=== PATIENT | male | born 1955 | race Two or more races ===

== ENCOUNTER 2022-04-01 11:06 | Inpatient (IN) | payer MEDICARE, MEDICAID ==
[~2022-04-01] VITALS: Ht 180.3 cm; Wt 100.6 kg
[2022-04-01] MEDS ORDERED: PANTOPRAZOLE 40 MG/10 ML VIAL INJ IV ONE (11:15)
[2022-04-01] MEDS ORDERED: PROCHLORPERAZINE EDISYLATE 5 MG/ML 2ML VIAL IV ONE (11:15)
[2022-04-01] MEDS ORDERED: SODIUM CHLORIDE 0.9% 1,000 ML IVB ONE (11:15)
[2022-04-01] MEDS ORDERED: MORPHINE SULFATE 4 MG/ML SYR/VIAL IV ONE (11:15)
[2022-04-01 12:07] LABS: Basophils # (auto) 0 10 ^3/uL (0-0.2); Basophils % (auto) 0.3 % (0.0-2.0); Eosinophils # (auto) 0 10 ^3/uL (0-0.8); Eosinophils % (auto) 0.1 % (0.0-7.0); Hematocrit 52.8 % (41.0-53.0); Hemoglobin 18.3 g/dL (13.5-17.5); Lymphocytes # (auto) 0.4 10 ^3/uL (0.4-5.4); Lymphocytes % (auto) 3.8 % (10.0-50.0); Mean Corpuscular Hemoglobin 30.2 pg (28.0-32.0); Mean Corpuscular Hgb Conc. 34.6 g/dL (32.0-36.0); Mean Corpuscular Volume 87.4 fL (80.0-100.0); Monocytes # (auto) 0.7 10 ^3/uL (0-1.3); Monocytes % (auto) 6.9 % (0.0-12.0); Neutrophils # (auto) 9.6 10 ^3/uL (1.6-8.6); Neutrophils % (auto) 88.9 % (37.0-80.0); Nucleated Red Blood Cells % 0.4 %; Red Blood Cells 6.05 10^6/uL (4.5-5.90); Red Cell Distribution Width 13.3 % (11.8-14.3); White Blood Cell 10.8 10^3/uL (4.4-10.8)
[2022-04-01 12:31] LABS: Albumin 3.8 g/dL (3.4-5.0); Calcium 9.4 mg/dL (8.5-10.1); Potassium 4.1 mmol/L (3.5-5.1)
[2022-04-01 12:34] LABS: Bilirubin, Total 0.5 mg/dL (0.2-1.0); Total Protein 6.7 g/dL (6.4-8.2)
[2022-04-01 13:49] LABS: Urine Bacteria FEW /hpf (None Seen); Urine Blood TRACE /uL (Negative); Urine Mucus FEW (None Seen); Urine Specific Gravity 1.019 (1.001-1.035); Urine WBC 1 /hpf (0 - 3)
[2022-04-01] MEDS ORDERED: HYDROcodone-ACET 5/325MG TAB PO ONE (14:00)
[2022-04-01] MEDS ORDERED: LORazepam 2MG/ML-1ML VIAL IV ONE (14:30)
[2022-04-01] MEDS: SODIUM CHLORIDE 0.9% 1,000 ML IV SCH (16:45)
[2022-04-01] MEDS ORDERED: hydrALAZINE HCL 20 MG/ML VL IV PRN (16:45)
[2022-04-01] MEDS ORDERED: ONDANSETRON HCL 4 MG/2 ML VIAL IV ONE (17:30)
[2022-04-01] MEDS: MORPHINE SULFATE INJ 2 MG/ml SYRG IV PRN ×2 (17:37→22:01)
[2022-04-01] MEDS ORDERED: LORazepam 2MG/ML-1ML VIAL IV PRN (23:15)
[2022-04-02] VITALS (8 sets, daily range): BP systolic 138–170; BP diastolic 77–106
[2022-04-02] MEDS: SODIUM CHLORIDE 0.9% 1,000 ML IV SCH ×3 (00:27→11:55)
[2022-04-02] MEDS: MORPHINE SULFATE INJ 2 MG/ml SYRG IV PRN ×5 (02:03→22:45)
[2022-04-02 06:02] LABS: Basophils # (auto) 0 10 ^3/uL (0-0.2); Basophils % (auto) 0.3 % (0.0-2.0); Eosinophils # (auto) 0 10 ^3/uL (0-0.8); Eosinophils % (auto) 0.9 % (0.0-7.0); Hematocrit 47.2 % (41.0-53.0); Hemoglobin 15.8 g/dL (13.5-17.5); Lymphocytes # (auto) 0.7 10 ^3/uL (0.4-5.4); Mean Corpuscular Hemoglobin 29.3 pg (28.0-32.0); Mean Corpuscular Hgb Conc. 33.5 g/dL (32.0-36.0); Mean Corpuscular Volume 87.6 fL (80.0-100.0); Monocytes # (auto) 0.4 10 ^3/uL (0-1.3); Monocytes % (auto) 12.2 % (0.0-12.0); Neutrophils % (auto) 63.6 % (37.0-80.0); Nucleated Red Blood Cells % 0.1 %; Red Blood Cells 5.38 10^6/uL (4.5-5.90); Red Cell Distribution Width 13.4 % (11.8-14.3); White Blood Cell 3.1 10^3/uL (4.4-10.8)
[2022-04-02 06:04] LABS: Albumin 3.3 g/dL (3.4-5.0); Calcium 7.9 mg/dL (8.5-10.1); Potassium 4.2 mmol/L (3.5-5.1)
[2022-04-02 06:07] LABS: BUN/Creatinine Ratio 10.5; Bilirubin, Total 0.8 mg/dL (0.2-1.0); Total Protein 5.9 g/dL (6.4-8.2)
[2022-04-02] MEDS ORDERED: GASTROGRAFIN 120 ML SOL ONE (09:01)
[2022-04-02] MEDS ORDERED: ENOXAPARIN SOD 40 MG/0.4 ML SYRINGE SC SCH (10:00)
[2022-04-02] MEDS ORDERED: LINA145C PO (11:11)
[2022-04-02] MEDS ORDERED: FUR20T PO (11:11)
[2022-04-02] MEDS ORDERED: MET25T PO (11:11)
[2022-04-02] MEDS ORDERED: CHOLCAP4 PO (11:11)
[2022-04-02] MEDS ORDERED: ONDA-144 (11:11)
[2022-04-02] MEDS ORDERED: HYDR-4611 PO (11:11)
[2022-04-02] MEDS ORDERED: TRAZ50TA2 PO (11:11)
[2022-04-02] MEDS ORDERED: KETO2SHA5 TOP (11:11)
[2022-04-02] MEDS ORDERED: PRAV20TA3 PO (11:11)
[2022-04-02] MEDS ORDERED: NIFE1TAB30 (11:11)
[2022-04-02] MEDS ORDERED: HYDR25TA87 PO (11:11)
[2022-04-02] MEDS ORDERED: CYCL-611 PO (11:11)
[2022-04-02] MEDS ORDERED: TRAM50TA2 PO (11:11)
[2022-04-02] MEDS ORDERED: ALBU108A5 INH (11:11)
[2022-04-02] MEDS ORDERED: CLON0.2T PO (11:11)
[2022-04-02] MEDS ORDERED: HYDROcodone-ACET 5/325MG TAB PO PRN (11:15)
[2022-04-02] MEDS ORDERED: METOPROLOL TARTRATE 25 MG TAB PO ONE (11:15)
[2022-04-02] MEDS ORDERED: PANTOPRAZOLE 40 MG/10 ML VIAL INJ IV ONE (11:15)
[2022-04-02] MEDS ORDERED: levoFLOXacin 500MG 100 ML IV ONE (11:15)
[2022-04-02] MEDS: ONDANSETRON HCL 4 MG/2 ML VIAL IV PRN ×2 (12:50→22:44)
[2022-04-02] MEDS: metroNIDAZOLE 500MG/100ML 100 ML IV SCH ×2 (13:38→21:40)
[2022-04-02] MEDS ORDERED: LORazepam 0.5 MG TAB PO PRN (16:45)
[2022-04-02] MEDS: METOPROLOL TARTRATE 25 MG TAB PO SCH (21:40)
[2022-04-03 05:00] VITALS: BP 166/107
[2022-04-03] MEDS: metroNIDAZOLE 500MG/100ML 100 ML IV SCH ×2 (05:04→14:36)
[2022-04-03] MEDS: MORPHINE SULFATE INJ 2 MG/ml SYRG IV PRN ×2 (05:04→09:42)
[2022-04-03] MEDS: ONDANSETRON HCL 4 MG/2 ML VIAL IV PRN ×2 (05:05→09:42)
[2022-04-03] MEDS: SODIUM CHLORIDE 0.9% 1,000 ML IV SCH (05:11)
[2022-04-03 05:50] LABS: Basophils # (auto) 0 10 ^3/uL (0-0.2); Basophils % (auto) 0.2 % (0.0-2.0); Eosinophils # (auto) 0 10 ^3/uL (0-0.8); Eosinophils % (auto) 0.4 % (0.0-7.0); Hematocrit 48.8 % (41.0-53.0); Hemoglobin 16.4 g/dL (13.5-17.5); Lymphocytes # (auto) 1.1 10 ^3/uL (0.4-5.4); Lymphocytes % (auto) 21.4 % (10.0-50.0); Mean Corpuscular Hemoglobin 29.3 pg (28.0-32.0); Mean Corpuscular Hgb Conc. 33.5 g/dL (32.0-36.0); Mean Corpuscular Volume 87.2 fL (80.0-100.0); Monocytes # (auto) 0.5 10 ^3/uL (0-1.3); Monocytes % (auto) 10.5 % (0.0-12.0); Neutrophils # (auto) 3.5 10 ^3/uL (1.6-8.6); Neutrophils % (auto) 67.5 % (37.0-80.0); Nucleated Red Blood Cells % 0.1 %; Red Cell Distribution Width 13.1 % (11.8-14.3); White Blood Cell 5.1 10^3/uL (4.4-10.8)
[2022-04-03 05:55] LABS: Albumin 3.6 g/dL (3.4-5.0); Calcium 8.5 mg/dL (8.5-10.1); Potassium 3.7 mmol/L (3.5-5.1)
[2022-04-03 06:00] LABS: BUN/Creatinine Ratio 6.3; Bilirubin, Total 0.7 mg/dL (0.2-1.0); Total Protein 6.8 g/dL (6.4-8.2)
[2022-04-03 08:20] VITALS: BP 150/108
[2022-04-03 08:25] VITALS: BP 150/108
[2022-04-03] MEDS: METOPROLOL TARTRATE 25 MG TAB PO SCH (09:41)
[2022-04-03] MEDS ORDERED: PANTOPRAZOLE 40 MG/10 ML VIAL INJ IV SCH (10:00)
[2022-04-03] MEDS ORDERED: levoFLOXacin 500MG 100 ML IV SCH (10:00)
[2022-04-03] MEDS ORDERED: LISINOPRIL 10 MG TAB PO ONE (11:15)
[2022-04-03] MEDS ORDERED: hydrALAZINE HCL 25 MG TAB PO ONE (11:30)
[2022-04-03] MEDS ORDERED: cloNIDine HCL 0.1 MG TAB PO ONE (11:30)
[2022-04-03 12:20] VITALS: BP 137/110
[2022-04-03 13:59] VITALS: BP 162/101
[2022-04-03] MEDS ORDERED: hydrALAZINE HCL 25 MG TAB PO SCH (22:00)
[2022-04-03] MEDS ORDERED: traZODone HCL 50 MG TAB PO SCH (22:00)
[2022-04-03] MEDS ORDERED: cloNIDine HCL 0.1 MG TAB PO SCH (22:00)
[2022-04-04] MEDS ORDERED: LISINOPRIL 10 MG TAB PO SCH (10:00)
== END 2022-04-03 14:58 | disposition home or self-care (01) | DRG 390 ==
LOC: EDBD 11:06 → ER 11:06 → OVERFLOW 16:37 → EAST 22:25
PROVIDERS: ADMIT Internal Medicine; ATTEND Internal Medicine
DX: K56.600 Partial intestinal obstruction, unspecified as to cause (principal); I10 Essential (primary) hypertension; E86.0 Dehydration; E66.9 Obesity, unspecified; F41.9 Anxiety disorder, unspecified; G89.29 Other chronic pain; E78.5 Hyperlipidemia, unspecified; Z20.822 Contact with and (suspected) exposure to COVID-19; K58.9 Irritable bowel syndrome, unspecified; R16.1 Splenomegaly, not elsewhere classified; K76.0 Fatty (change of) liver, not elsewhere classified; Z80.3 Family history of malignant neoplasm of breast; Z87.442 Personal history of urinary calculi; Z90.49 Acquired absence of other specified parts of digestive tract; Z68.30 Body mass index [BMI] 30.0-30.9, adult
CPT/HCPCS: 36415; 74176; 74250; 80053; 81001; 82150; 83690; 85025; 93005; 96361; 96374; 96375; 96376; C9113; G0378; J1956; J2405; J3490

== ENCOUNTER 2022-04-27 00:36 | Emergency (ER) | payer MEDICARE, MEDICAID ==
[~2022-04-27] VITALS: Ht 175.3 cm; Wt 100.0 kg
[~2022-04-27 00:36] MED LIST: ALBU108A5 INH; CHOLCAP4 PO; CLON0.2T PO; CYCL-611 PO; FUR20T PO; HYDR-4611 PO; HYDR25TA87 PO; KETO2SHA5 TOP; LINA145C PO; MET25T PO; NIFE1TAB30; ONDA-144; PRAV20TA3 PO; TRAM50TA2 PO; TRAZ50TA2 PO
[2022-04-27 01:21] LABS: Basophils # (auto) 0 10 ^3/uL (0-0.2)
[2022-04-27 01:23] LABS: Basophils % (auto) 0.6 % (0.0-2.0); Eosinophils # (auto) 0.1 10 ^3/uL (0-0.8); Eosinophils % (auto) 1.8 % (0.0-7.0); Hematocrit 51.4 % (41.0-53.0); Hemoglobin 17.6 g/dL (13.5-17.5); Lymphocytes # (auto) 1.8 10 ^3/uL (0.4-5.4); Lymphocytes % (auto) 41.4 % (10.0-50.0); Mean Corpuscular Hemoglobin 30.2 pg (28.0-32.0); Mean Corpuscular Hgb Conc. 34.3 g/dL (32.0-36.0); Monocytes # (auto) 0.4 10 ^3/uL (0-1.3); Neutrophils # (auto) 2.1 10 ^3/uL (1.6-8.6); Neutrophils % (auto) 48.2 % (37.0-80.0); Nucleated Red Blood Cells % 0.4 %; Red Blood Cells 5.84 10^6/uL (4.5-5.90); Red Cell Distribution Width 13.2 % (11.8-14.3); White Blood Cell 4.4 10^3/uL (4.4-10.8)
[2022-04-27 03:45] LABS: Urine Bacteria NONE SEEN /hpf (None Seen); Urine Blood Negative /uL (Negative); Urine Mucus FEW (None Seen); Urine Specific Gravity 1.016 (1.001-1.035); Urine WBC 1 /hpf (0 - 3)
[2022-04-27 03:53] LABS: Albumin 3.9 g/dL (3.4-5.0); Calcium 9.5 mg/dL (8.5-10.1); Potassium 3.7 mmol/L (3.5-5.1)
[2022-04-27 03:56] LABS: BUN/Creatinine Ratio 14.4; Bilirubin, Total 0.6 mg/dL (0.2-1.0); Total Protein 6.9 g/dL (6.4-8.2)
[2022-04-27] MEDS: ONDANSETRON HCL 4 MG/2 ML VIAL IV ONE (06:13)
[2022-04-27] MEDS: LORazepam 0.5 MG TAB PO ONE (08:21)
[2022-04-27] MEDS: MECLIZINE HCL 25 MG TAB PO ONE (08:21)
[2022-04-27] MEDS ORDERED: MECL1TAB42 PO (14:34)
[2022-04-27] MEDS ORDERED: FURO1TAB33 PO (14:34)
[2022-04-27] MEDS ORDERED: LORA-655 PO (14:34)
[2022-04-27] MEDS ORDERED: SPIR25TA PO (14:34)
[2022-04-27 15:27] VITALS: BP 134/87
== END 2022-04-27 15:38 | disposition home or self-care (01) ==
LOC: ER 00:36
DX: R42 Dizziness and giddiness (principal); F41.1 Generalized anxiety disorder; R09.89 Other specified symptoms and signs involving the circulatory and respiratory systems; J44.9 Chronic obstructive pulmonary disease, unspecified; E78.5 Hyperlipidemia, unspecified; I10 Essential (primary) hypertension; Z87.442 Personal history of urinary calculi
CPT/HCPCS: 36415; 71046; 80053; 81001; 83880; 84484; 85025; 93005; 96374; 99285; J2405; J8597

== ENCOUNTER 2023-02-04 11:52 | Inpatient (IN) | payer OTHER, MEDICAID ==
[~2023-02-04] VITALS: Ht 175.3 cm; Wt 95.0 kg
[~2023-02-04 11:52] MED LIST changes: +FURO1TAB33 PO; +LORA-655 PO; +MECL1TAB42 PO; +SPIR25TA PO; +TRAZ-227 PO; -TRAZ50TA2 PO
[2023-02-04 12:12] VITALS: BP 134/80
[2023-02-04 13:19] LABS: Basophils # (auto) 0 10 ^3/uL (0-0.2); Basophils % (auto) 0.4 % (0.0-2.0); Eosinophils # (auto) 0.1 10 ^3/uL (0-0.8); Eosinophils % (auto) 2.4 % (0.0-7.0); Hematocrit 46.3 % (41.0-53.0); Hemoglobin 15.7 g/dL (13.5-17.5); Lymphocytes # (auto) 1.4 10 ^3/uL (0.4-5.4); Lymphocytes % (auto) 33.4 % (10.0-50.0); Mean Corpuscular Hemoglobin 29.4 pg (28.0-32.0); Mean Corpuscular Hgb Conc. 33.9 g/dL (32.0-36.0); Mean Corpuscular Volume 86.9 fL (80.0-100.0); Monocytes # (auto) 0.4 10 ^3/uL (0-1.3); Monocytes % (auto) 8.9 % (0.0-12.0); Neutrophils # (auto) 2.2 10 ^3/uL (1.6-8.6); Neutrophils % (auto) 54.9 % (37.0-80.0); Nucleated Red Blood Cells % 0.5 %; Red Blood Cells 5.33 10^6/uL (4.5-5.90); Red Cell Distribution Width 13.6 % (11.8-14.3); White Blood Cell 4.1 10^3/uL (4.4-10.8)
[2023-02-04 13:22] LABS: Potassium 4.2 mmol/L (3.5-5.1)
[2023-02-04 13:24] LABS: INR 0.98 (0.9-1.15); Partial Thromboplastin Time 27.9 sec (24.6-33.4)
[2023-02-04 13:29] LABS: Albumin 3.6 g/dL (3.4-5.0); BUN/Creatinine Ratio 18.6 (10.0-20.0); Bilirubin, Total 0.4 mg/dL (0.2-1.0); Calcium 9.5 mg/dL (8.5-10.1); Magnesium 2.3 mg/dL (1.6-2.6); Total Protein 6.2 g/dL (6.4-8.2)
[2023-02-04] MEDS ORDERED: LINACLOTIDE BASE PO PRN (17:45)
[2023-02-04] MEDS ORDERED: ERGOCALCIFEROL 50,000 UNIT(1.25MG) CAP PO SCH (18:15)
[2023-02-04] MEDS ORDERED: SODIUM CHLORIDE 0.9% 1,000 ML IV ONE (18:15)
[2023-02-04 18:29] LABS: Magnesium 2.4 mg/dL (1.6-2.6); Phosphorus 4.1 mg/dL (2.5-4.90)
[2023-02-04] MEDS ORDERED: hydrALAZINE HCL 25 MG TAB PO SCH (22:00)
[2023-02-04] MEDS ORDERED: CYCLOBENZAPRINE HCL 10 MG TAB PO SCH (22:00)
[2023-02-04] MEDS ORDERED: MECLIZINE HCL 25 MG TAB PO SCH (22:00)
[2023-02-04] MEDS ORDERED: METOPROLOL TARTRATE 25 MG TAB PO SCH (22:00)
[2023-02-04] MEDS ORDERED: traZODone HCL 50 MG TAB PO SCH (22:00)
[2023-02-04] MEDS ORDERED: ATORVASTATIN 20 MG TAB PO SCH (22:00)
[2023-02-04] MEDS ORDERED: PRAVASTATIN SODIUM 20 MG TAB PO SCH (22:00)
[2023-02-04] MEDS ORDERED: cloNIDine HCL 0.1 MG TAB PO SCH (22:00)
[2023-02-05] MEDS ORDERED: PANTOPRAZOLE 40 MG/10 ML VIAL INJ IV SCH (10:00)
[2023-02-05] MEDS ORDERED: ASPirin 81 mg TAB PO SCH (10:00)
[2023-02-05] MEDS ORDERED: FUROSEMIDE 20 MG TAB PO SCH (10:00)
== END 2023-02-04 18:42 | disposition left against medical advice (07) | DRG 69 ==
LOC: ER 11:52 → TELE 17:52 → ER 18:42 → TELE 18:42
PROVIDERS: ADMIT Nurse Practitioner Family; ATTEND Nurse Practitioner Family
DX: G45.9 Transient cerebral ischemic attack, unspecified (principal); F17.200 Nicotine dependence, unspecified, uncomplicated; I10 Essential (primary) hypertension; E78.5 Hyperlipidemia, unspecified; J44.9 Chronic obstructive pulmonary disease, unspecified; K52.9 Noninfective gastroenteritis and colitis, unspecified; F41.9 Anxiety disorder, unspecified; G89.29 Other chronic pain; K21.9 Gastro-esophageal reflux disease without esophagitis; Z53.29 Procedure and treatment not carried out because of patient's decision for other reasons; Z87.442 Personal history of urinary calculi; Z90.49 Acquired absence of other specified parts of digestive tract
CPT/HCPCS: 36415; 70450; 71045; 80053; 82962; 83735; 83880; 84100; 84443; 84484; 85025; 85610; 85730; 93005; G0378

== ENCOUNTER 2023-02-10 11:30 | Inpatient (IN) | payer OTHER, MEDICAID ==
[~2023-02-10] VITALS: Ht 175.3 cm; Wt 95.1 kg
[2023-02-10 12:13] LABS: Basophils # (auto) 0 10 ^3/uL (0-0.2); Basophils % (auto) 0.4 % (0.0-2.0); Eosinophils # (auto) 0.1 10 ^3/uL (0-0.8); Eosinophils % (auto) 1.5 % (0.0-7.0); Hematocrit 45.5 % (41.0-53.0); Hemoglobin 15.6 g/dL (13.5-17.5); Lymphocytes # (auto) 1.3 10 ^3/uL (0.4-5.4); Lymphocytes % (auto) 27.6 % (10.0-50.0); Mean Corpuscular Hemoglobin 29.9 pg (28.0-32.0); Mean Corpuscular Hgb Conc. 34.4 g/dL (32.0-36.0); Monocytes # (auto) 0.3 10 ^3/uL (0-1.3); Neutrophils # (auto) 2.9 10 ^3/uL (1.6-8.6); Neutrophils % (auto) 63.5 % (37.0-80.0); Nucleated Red Blood Cells % 0.1 %; Red Blood Cells 5.23 10^6/uL (4.5-5.90); Red Cell Distribution Width 13.8 % (11.8-14.3); White Blood Cell 4.6 10^3/uL (4.4-10.8)
[2023-02-10 13:03] LABS: Albumin 3.6 g/dL (3.4-5.0); Calcium 8.5 mg/dL (8.5-10.1); Potassium 4.1 mmol/L (3.5-5.1)
[2023-02-10 13:06] LABS: BUN/Creatinine Ratio 14.3 (10.0-20.0); Bilirubin, Total 0.4 mg/dL (0.2-1.0); Total Protein 6.2 g/dL (6.4-8.2)
[2023-02-10] MEDS ORDERED: SODIUM CHLORIDE 0.9% 1,000 ML IV ONE (14:00)
[2023-02-10] MEDS ORDERED: PROMETHAZINE HCL 25 MG/ML 1ML IV ONE (15:45)
[2023-02-10] MEDS ORDERED: HYDROcodone-ACET 5/325MG TAB PO PRN (15:45)
[2023-02-10] MEDS ORDERED: HYDROcodone-ACET 5/325MG TAB PO ONE (15:45)
[2023-02-10] MEDS ORDERED: ALBUTEROL SULF 2.5 MG/0.5ML(0.5%) NEB SOLN NEB PRN (16:00)
[2023-02-10] MEDS ORDERED: IPRATROPIUM BROM 0.5 MG/2.5ML INH SOL NEB PRN (16:00)
[2023-02-10] MEDS ORDERED: DEXTROSE (50%) 50ML SYRG IV PRN (16:30)
[2023-02-10 16:47] LABS: Urine Bacteria NONE SEEN /hpf (None Seen); Urine Blood Negative /uL (Negative); Urine Mucus FEW (None Seen); Urine Specific Gravity 1.028 (1.001-1.035); Urine WBC 1 /hpf (0 - 3)
[2023-02-10] MEDS ORDERED: InsuLIN REG 1unit/0.01ml Soln (100units/ml) SC SCH (17:00)
[2023-02-10] MEDS ORDERED: ACCU-CHEK COMFORT CURVE STRIP VI SCH (17:00)
[2023-02-10 17:03] LABS: Alcohol, Urine < 3.0 mg/dL (0-10); Amphetamine Screen, Urine NEGATIVE (NEGATIVE); Barbiturate Scree,Urine NEGATIVE (NEGATIVE); Benzodiazephine Screen, Urine NEGATIVE (NEGATIVE); Cannabinoid Screen, Urine NEGATIVE (NEGATIVE); Cocaine Screen, Urine NEGATIVE (NEGATIVE); Opiate Scree,Urine NEGATIVE (NEGATIVE); Phencyclidine Screen, Urine NEGATIVE (NEGATIVE)
[2023-02-10 19:06] VITALS: BP 120/67
[2023-02-10] MEDS ORDERED: LORazepam 2MG/ML-1ML VIAL IV PRN (19:30)
[2023-02-10] MEDS ORDERED: MECLIZINE HCL 25 MG TAB PO SCH (22:00)
[2023-02-10] MEDS ORDERED: PRAVASTATIN SODIUM 20 MG TAB PO SCH (22:00)
[2023-02-10] MEDS ORDERED: hydrALAZINE HCL 25 MG TAB PO SCH (22:00)
[2023-02-10] MEDS ORDERED: METOPROLOL TARTRATE 25 MG TAB PO SCH (22:00)
[2023-02-11] MEDS ORDERED: PANTOPRAZOLE 40 MG TAB PO SCH (10:00)
== END 2023-02-10 20:52 | disposition left against medical advice (07) | DRG 69 ==
LOC: ER 11:30 → OVERFLOW 15:43 → ER 20:52 → OVERFLOW 20:52
PROVIDERS: ADMIT Nurse Practitioner Family; ATTEND Internal Medicine
DX: G45.9 Transient cerebral ischemic attack, unspecified (principal); I10 Essential (primary) hypertension; J44.9 Chronic obstructive pulmonary disease, unspecified; Z53.29 Procedure and treatment not carried out because of patient's decision for other reasons; E78.5 Hyperlipidemia, unspecified; G89.29 Other chronic pain; K21.9 Gastro-esophageal reflux disease without esophagitis; F17.200 Nicotine dependence, unspecified, uncomplicated; Z87.442 Personal history of urinary calculi; Z90.49 Acquired absence of other specified parts of digestive tract; Z80.3 Family history of malignant neoplasm of breast
CPT/HCPCS: 36415; 80053; 80307; 81001; 84484; 85025; 93005; 96374; G0378

== ENCOUNTER 2023-10-14 10:20 | Day surgery (SDC) | payer OTHER, MEDICAID ==
[2023-10-08 09:30] LABS: Basophils # (auto) 0.1 10 ^3/uL (0-0.2); Basophils % (auto) 0.9 % (0.0-2.0); Eosinophils # (auto) 0.1 10 ^3/uL (0-0.8); Eosinophils % (auto) 2.7 % (0.0-7.0); Hematocrit 50.9 % (41.0-53.0); Hemoglobin 16.9 g/dL (13.5-17.5); Lymphocytes # (auto) 1.6 10 ^3/uL (0.4-5.4); Lymphocytes % (auto) 30.3 % (10.0-50.0); Mean Corpuscular Hemoglobin 29.1 pg (28.0-32.0); Mean Corpuscular Hgb Conc. 33.2 g/dL (32.0-36.0); Mean Corpuscular Volume 87.6 fL (80.0-100.0); Monocytes # (auto) 0.5 10 ^3/uL (0-1.3); Monocytes % (auto) 9.4 % (0.0-12.0); Neutrophils # (auto) 3.1 10 ^3/uL (1.6-8.6); Neutrophils % (auto) 56.7 % (37.0-80.0); Nucleated Red Blood Cells % 0.2 %; Red Blood Cells 5.81 10^6/uL (4.5-5.90); Red Cell Distribution Width 13.1 % (11.8-14.3); White Blood Cell 5.4 10^3/uL (4.4-10.8)
[2023-10-08 09:56] LABS: INR 0.97 (0.9-1.15); Partial Thromboplastin Time 27.9 SEC (24.5-34.5); Prothrombin Time 10.2 sec (9.3-11.8)
[2023-10-08 10:22] LABS: Alanine Aminotransferase 17 U/L (7-40); Albumin 4.4 g/dL (3.2-4.8); Alkaline Phosphatase 96 U/L (46-116); Anion Gap 4 (5-15); Aspartate Aminotransferase 17 U/L (13-40); BUN/Creatinine Ratio 13.1 (10.0-20.0); Blood Urea Nitrogen 16 mg/dL (9-23); Calcium 10.3 mg/dL (8.5-10.1); Carbon Dioxide 27 mmol/L (20-30); Chloride 106 mmol/L (98-107); Glucose 134 mg/dL (74-106); Potassium 5.2 mmol/L (3.5-5.1); Sodium 137 mmol/L (136-145)
[2023-10-08 10:23] LABS: Bilirubin, Total 0.4 mg/dL (0.2-1.0); Total Protein 6.7 g/dL (5.7-8.2)
[~2023-10-14] VITALS: Ht 175.3 cm; Wt 99.8 kg
[~2023-10-14 10:20] MED LIST changes: -ALBU108A5 INH; -CHOLCAP4 PO; -CYCL-611 PO; +FLUMAZENIL 0.1 MG/ML INJ 10ML MDV IV ONE; -FUR20T PO; -FURO1TAB33 PO; -HYDR-4611 PO; -LORA-655 PO; -MECL1TAB42 PO; +METF-370 PO; +NALOXONE HCL 0.4 MG/ML VIAL ONE; -NIFE1TAB30; -ONDA-144; +SERT25TA28 PO; +SODIUM CHLORIDE LOCK 10 ML ONE; -SPIR25TA PO; +TAMS-35 PO; -TRAZ-227 PO
[2023-10-14 11:31] VITALS: O2SAT 97
[2023-10-14] MEDS: LIDOCAINE VISCOUS 2% 15ML UD ONE (11:35)
[2023-10-14] MEDS: fentaNYL CITRATE 100 MCG/2 ML VL ONE (11:39)
[2023-10-14] MEDS: MIDAZOLAM HCL 5 MG/ML-1ML VIAL ONE (11:39)
[2023-10-14] MEDS: diphenhdrAMINE HCL 50 MG/1 ML VL ONE (11:40)
[2023-10-14 11:51] VITALS: TEMP 98.2; O2SAT 96
[2023-10-14 13:00] VITALS: BP 135/91; PULSE 66; RESP 12; O2SAT 96
== END 2023-10-14 13:16 | disposition home or self-care (01) ==
LOC: GI 10:20
PROVIDERS: ATTEND Internal Medicine Gastroenterology
DX: R13.10 Dysphagia, unspecified (principal); K21.9 Gastro-esophageal reflux disease without esophagitis; K44.9 Diaphragmatic hernia without obstruction or gangrene; K29.50 Unspecified chronic gastritis without bleeding; K29.80 Duodenitis without bleeding
CPT/HCPCS: 36415; 43239; 43450; 80053; 85025; 85610; 85730; J1200; J2250; J3010

== ENCOUNTER 2024-03-13 12:25 | Inpatient (IN) | payer OTHER, MEDICAID ==
[~2024-03-13] VITALS: Ht 175.3 cm; Wt 101.0 kg
[~2024-03-13 12:25] MED LIST changes: -FLUMAZENIL 0.1 MG/ML INJ 10ML MDV IV ONE; -NALOXONE HCL 0.4 MG/ML VIAL ONE; -SODIUM CHLORIDE LOCK 10 ML ONE
[2024-03-13] MEDS: PROCHLORPERAZINE EDISYLATE 5 MG/ML 2ML VIAL IV ONE (12:49)
[2024-03-13] MEDS: PANTOPRAZOLE 40 MG/10 ML VIAL INJ IV ONE (12:49)
[2024-03-13 13:09] LABS: Basophils # (auto) 0 10 ^3/uL (0-0.2); Eosinophils # (auto) 0 10 ^3/uL (0-0.8); Hemoglobin 18.8 g/dL (13.5-17.5); Nucleated Red Blood Cells % 0.1 %; White Blood Cell 5.6 10^3/uL (4.4-10.8)
[2024-03-13 13:12] LABS: Basophils % (auto) 0.3 % (0.0-2.0); Eosinophils % (auto) 0.2 % (0.0-7.0); Hematocrit 54.8 % (41.0-53.0); Lymphocytes % (auto) 17.3 % (10.0-50.0); Mean Corpuscular Hemoglobin 30.5 pg (28.0-32.0); Mean Corpuscular Hgb Conc. 34.3 g/dL (32.0-36.0); Mean Corpuscular Volume 88.9 fL (80.0-100.0); Monocytes # (auto) 0.5 10 ^3/uL (0-1.3); Monocytes % (auto) 8.6 % (0.0-12.0); Neutrophils # (auto) 4.1 10 ^3/uL (1.6-8.6); Neutrophils % (auto) 73.6 % (37.0-80.0); Red Blood Cells 6.17 10^6/uL (4.5-5.90); Red Cell Distribution Width 13.4 % (11.8-14.3)
[2024-03-13 13:25] VITALS: PULSE 108; RESP 16; O2SAT 93
[2024-03-13] MEDS: SODIUM CHLORIDE 0.9% 1,000 ML IVB ONE (13:28)
[2024-03-13 13:30] LABS: Alanine Aminotransferase 17 U/L (7-40); Albumin 4.8 g/dL (3.2-4.8); Alkaline Phosphatase 86 U/L (46-116); Anion Gap 11 (5-15); Aspartate Aminotransferase 9 U/L (13-40); BUN/Creatinine Ratio 12.1 (10.0-20.0); Blood Urea Nitrogen 17 mg/dL (9-23); Calcium 10.1 mg/dL (8.7-10.4); Carbon Dioxide 17 mmol/L (20-30); Chloride 106 mmol/L (98-107); Glucose 170 mg/dL (74-106); Lipase 22 U/L (12-53); Potassium 4.5 mmol/L (3.5-5.1); Sodium 134 mmol/L (136-145)
[2024-03-13] MEDS: MORPHINE SULFATE 4 MG/ML SYR/VIAL IV ONE (13:30)
[2024-03-13 13:31] LABS: Bilirubin, Total 0.9 mg/dL (0.2-1.0); Total Protein 7.2 g/dL (5.7-8.2)
[2024-03-13] MEDS ORDERED: MORPHINE SULFATE INJ 2 MG/ml SYRG IV PRN (17:00)
[2024-03-13] MEDS ORDERED: ALBUTEROL SULF 2.5 MG/0.5ML(0.5%) NEB SOLN NEB PRN (17:00)
[2024-03-13] MEDS ORDERED: IPRATROPIUM BROM 0.5 MG/2.5ML INH SOL NEB PRN (17:00)
[2024-03-13] MEDS ORDERED: DOCUSATE SOD 100 MG CAP PO PRN ×2 (17:00→22:00)
[2024-03-13] MEDS ORDERED: NITROGLYCERIN 0.4 MG SL TAB SL PRN ×2 (17:00→22:00)
[2024-03-13] MEDS ORDERED: ONDANSETRON HCL 4 MG/2 ML VIAL IV PRN (17:00)
[2024-03-13] MEDS ORDERED: DEXTROSE (50%) 50ML SYRG IV PRN ×2 (17:00→22:00)
[2024-03-13] MEDS ORDERED: PANTOPRAZOLE 40 MG/10 ML VIAL INJ IV ONE (17:00)
[2024-03-13] MEDS: HYDROmorphone HCL 2 MG/ML VL/or syr IV ONE (17:34)
[2024-03-13] MEDS: ACCU-CHEK COMFORT CURVE STRIP VI SCH (18:45)
[2024-03-13] MEDS: SODIUM CHLORIDE 0.9% 1,000 ML IV SCH (18:45)
[2024-03-13] MEDS: InsuLIN REG 1unit/0.01ml Soln (100units/ml) SC SCH (18:48)
[2024-03-13] MEDS: InsuLIN REG 1unit/0.01ml Soln (100units/ml) ONE (18:53)
[2024-03-13 19:30] VITALS: PULSE 127; RESP 16; O2SAT 93
[2024-03-13 20:18] LABS: Creatinine, Urine 488.53 mg/dL (30.0-125.0)
[2024-03-13 20:21] LABS: Sodium Urine < 10 mmol/L (40-220)
[2024-03-13 21:00] VITALS: BP 113/79; PULSE 118; RESP 19; TEMP 97.6; O2SAT 96
[2024-03-13] MEDS ORDERED: HYDROmorphone HCL 2 MG/ML VL/or syr IV PRN (21:00)
[2024-03-13 21:13] VITALS: BP 113/79; PULSE 118; RESP 17; TEMP 97.6; O2SAT 96
[2024-03-13 21:50] VITALS: BP 115/87; PULSE 108; RESP 18; O2SAT 93
[2024-03-13] MEDS: hydrALAZINE HCL 25 MG TAB PO SCH (22:00)
[2024-03-13] MEDS ORDERED: cloNIDine HCL 0.1 MG TAB PO SCH (22:00)
[2024-03-13] MEDS ORDERED: hydrALAZINE HCL 25 MG TAB PO SCH (22:00)
[2024-03-13] MEDS ORDERED: METOPROLOL TARTRATE 25 MG TAB PO SCH (22:00)
[2024-03-13] MEDS ORDERED: SUCRALFATE 1 GM/10 ML ORAL SUSP PO SCH (22:00)
[2024-03-13] MEDS ORDERED: PANTOPRAZOLE 40 MG/10 ML VIAL INJ IV SCH (22:00)
[2024-03-13] MEDS ORDERED: PRAVASTATIN SODIUM 20 MG TAB PO SCH (22:00)
[2024-03-13] MEDS: PANTOPRAZOLE 40 MG/10 ML VIAL INJ IV SCH (22:24)
[2024-03-13] MEDS: METOPROLOL TARTRATE 25 MG TAB PO SCH (22:25)
[2024-03-13] MEDS: PRAVASTATIN SODIUM 20 MG TAB PO SCH (22:25)
[2024-03-13] MEDS: cloNIDine HCL 0.1 MG TAB PO SCH (22:26)
[2024-03-13] MEDS: SUCRALFATE 1 GM/10 ML ORAL SUSP PO SCH (22:26)
[2024-03-13] MEDS ORDERED: HYDR-4902 PO (23:01)
[2024-03-13] MEDS ORDERED: OMEP1CAP70 PO (23:01)
[2024-03-13] MEDS ORDERED: TADA5TAB11 PO (23:01)
[2024-03-13] MEDS ORDERED: CYCL-839 PO (23:01)
[2024-03-14] VITALS (11 sets, daily range): BP systolic 107–159; BP diastolic 63–106; PULSE 67–136; RESP 16–20; TEMP 97.4–99.4; O2SAT 94–100
[2024-03-14] MEDS: InsuLIN REG 1unit/0.01ml Soln (100units/ml) SC SCH (00:27)
[2024-03-14] MEDS: ACCU-CHEK COMFORT CURVE STRIP VI SCH (00:28)
[2024-03-14] MEDS: HYDROmorphone HCL 2 MG/ML VL/or syr IV PRN (01:13)
[2024-03-14 06:50] LABS: Hemoglobin 16.2 g/dL (13.5-17.5); Mean Corpuscular Hemoglobin 29.9 pg (28.0-32.0); Mean Corpuscular Hgb Conc. 33.8 g/dL (32.0-36.0); Mean Corpuscular Volume 88.4 fL (80.0-100.0); Red Blood Cells 5.42 10^6/uL (4.5-5.90); Red Cell Distribution Width 13.4 % (11.8-14.3); White Blood Cell 3.2 10^3/uL (4.4-10.8)
[2024-03-14 07:00] LABS: Band Neutrophils % (manual) 0; Basophils % (manual) 0 (0.0-2.0); Blast Cells 0; Metamyelocytes % 0; Myelocytes % 0; Promyelocytes % 0; Reactive Lymphocytes 0
[2024-03-14 07:06] LABS: Alanine Aminotransferase 13 U/L (7-40); Alkaline Phosphatase 59 U/L (46-116); Anion Gap 8 (5-15); BUN/Creatinine Ratio 13.6 (10.0-20.0); Blood Urea Nitrogen 20 mg/dL (9-23); Calcium 8.6 mg/dL (8.7-10.4); Carbon Dioxide 21 mmol/L (20-30); Chloride 107 mmol/L (98-107); Glucose 136 mg/dL (74-106); Potassium 4.7 mmol/L (3.5-5.1); Sodium 136 mmol/L (136-145)
[2024-03-14 07:07] LABS: Albumin 3.9 g/dL (3.2-4.8); Aspartate Aminotransferase 10 U/L (13-40)
[2024-03-14 07:08] LABS: Total Protein 6.1 g/dL (5.7-8.2)
[2024-03-14 08:14] LABS: Eosinophils % (manual) 1 (0-7); Lymphocytes % (manual) 21 (10.0-50.0); Monocytes % (manual) 22 (0-12); Platelet Estimate Adequate
[2024-03-14] MEDS: SODIUM CHLORIDE 0.9% 1,000 ML IV SCH (16:07)
[2024-03-14] MEDS: TAMSULOSIN HYDROCHLORIDE 0.4 MG CAP PO SCH (17:50)
[2024-03-14] MEDS ORDERED: TAMSULOSIN HYDROCHLORIDE 0.4 MG CAP PO SCH (18:00)
[2024-03-14] MEDS: IPRATROPIUM BROM 0.5 MG/2.5ML INH SOL NEB PRN (19:32)
[2024-03-14] MEDS: ALBUTEROL SULF 2.5 MG/0.5ML(0.5%) NEB SOLN NEB PRN (19:32)
[2024-03-14] MEDS: ONDANSETRON HCL 4 MG/2 ML VIAL IV PRN (21:04)
[2024-03-14] MEDS: MELATONIN 5 MG TAB PO ONE (21:25)
[2024-03-15] VITALS (12 sets, daily range): BP systolic 113–142; BP diastolic 80–87; PULSE 92–114; RESP 2–18; TEMP 97.7–98.8; O2SAT 91–98
[2024-03-15] MEDS: ALBUTEROL SULF 2.5 MG/0.5ML(0.5%) NEB SOLN NEB SCH (07:00)
[2024-03-15] MEDS: SERTRALINE HCL 50 MG TAB PO SCH (08:47)
[2024-03-15] MEDS: DICYCLOMINE HCL 10 MG CAP PO ONE (11:40)
[2024-03-15] MEDS: DICYCLOMINE HCL 10 MG CAP PO SCH (11:43)
[2024-03-15 14:51] LABS: Urine Bacteria None Seen /hpf (None Seen)
[2024-03-15 15:08] LABS: Urine Blood TRACE /uL (Negative); Urine Clarity Clear (Clear); Urine Color Yellow (Yellow); Urine Mucus FEW (None Seen); Urine Protein, UAD 1+ (Negative); Urine Urobilinogen Normal (Negative); Urine WBC 2 /hpf (0 - 3)
[2024-03-15] MEDS ORDERED: metroNIDAZOLE 500MG/100ML 100 ML IV ONE (17:15)
[2024-03-15] MEDS: levoFLOXacin 500MG 100 ML IV ONE (18:09)
[2024-03-15] MEDS: IPRATROPIUM BROM 0.5 MG/2.5ML INH SOL NEB SCH (18:54)
[2024-03-15] MEDS: metroNIDAZOLE 500MG/100ML 100 ML IV SCH (19:15)
[2024-03-16] VITALS (12 sets, daily range): BP systolic 136–151; BP diastolic 85–98; PULSE 86–103; RESP 16–20; TEMP 97.9–98.6; O2SAT 91–100
[2024-03-16] MEDS: TEMAZEPAM 15 MG CAP PO ONE (01:52)
[2024-03-16] MEDS: GASTROGRAFIN 120 ML SOL ONE (07:49)
[2024-03-16 14:25] LABS: Chloride 109 mmol/L (98-107); Potassium 3.2 mmol/L (3.5-5.1); Sodium 140 mmol/L (136-145)
[2024-03-16 14:26] LABS: Anion Gap 9 (5-15); Carbon Dioxide 22 mmol/L (20-30)
[2024-03-16 14:31] LABS: BUN/Creatinine Ratio 10.3 (10.0-20.0); Blood Urea Nitrogen 10 mg/dL (9-23); Glucose 123 mg/dL (74-106)
[2024-03-16] MEDS: levoFLOXacin 500MG 100 ML IV SCH (16:12)
[2024-03-16] MEDS: POTASSIUM CHLORIDE 40 MEQ, LIDOCAINE 1% (LOCAL ANESTH.) 4 ML in SODIUM CHL 0.9% 250 ML IV ONE (16:17)
[2024-03-16] MEDS: POTASSIUM CHL 20 Meq TABLET PO SCH (23:22)
[2024-03-16] MEDS: MELATONIN 5 MG TAB PO SCH (23:22)
[2024-03-17] VITALS (10 sets, daily range): BP systolic 137–175; BP diastolic 87–114; PULSE 72–92; RESP 16–20; TEMP 97.3–98.9; O2SAT 91–100
[2024-03-17 11:58] LABS: Chloride 109 mmol/L (98-107); Potassium 3.3 mmol/L (3.5-5.1); Sodium 136 mmol/L (136-145)
[2024-03-17 11:59] LABS: Anion Gap 4 (5-15); Calcium 8.7 mg/dL (8.5-10.1); Carbon Dioxide 23 mmol/L (20-30)
[2024-03-17 12:04] LABS: Glucose 109 mg/dL (74-106)
[2024-03-17 12:13] LABS: Blood Urea Nitrogen < 5 mg/dL (9-23)
[2024-03-17] MEDS: POTASSIUM CHLORIDE 40 MEQ, LIDOCAINE 1% (LOCAL ANESTH.) 4 ML in SODIUM CHL 0.9% 250 ML IV ONE (19:00)
[2024-03-18] VITALS (7 sets, daily range): BP systolic 138–176; BP diastolic 91–106; PULSE 75–88; RESP 16–18; TEMP 97.8–99.2; O2SAT 92–97
[2024-03-18] MEDS ORDERED: HYDROmorphone HCL 2 MG/ML VL/or syr IV PRN (05:00)
[2024-03-18 11:11] LABS: Chloride 103 mmol/L (98-107); Potassium 3.2 mmol/L (3.5-5.1)
[2024-03-18 11:12] LABS: Anion Gap 7 (5-15); Carbon Dioxide 25 mmol/L (20-30); Sodium 135 mmol/L (136-145)
[2024-03-18 11:13] LABS: Calcium 9.3 mg/dL (8.5-10.1)
[2024-03-18 11:17] LABS: Glucose 131 mg/dL (74-106)
[2024-03-18 11:18] LABS: BUN/Creatinine Ratio 6.1 (10.0-20.0); Blood Urea Nitrogen < 5 mg/dL (9-23)
[2024-03-18] MEDS ORDERED: LABETALOL HCL 5 MG/ML ML 20ML VIAL IV PRN (16:15)
[2024-03-18] MEDS: POTASSIUM CHL 20 Meq TABLET PO ONE (17:26)
[2024-03-18] MEDS: POTASSIUM CHLORIDE 40 MEQ, LIDOCAINE 1% (LOCAL ANESTH.) 4 ML in SODIUM CHL 0.9% 250 ML IV ONE (17:27)
== END 2024-03-18 21:30 | disposition home or self-care (01) | DRG 388 ==
LOC: EDUNIT# 12:25 → EDBD 12:25 → ER 12:25 → OVERFLOW 17:01 → ER 17:01 → WEST WING 20:26
PROVIDERS: ADMIT Internal Medicine; ATTEND Emergency Medicine
PROC: 0D9670Z Drainage of Stomach with Drainage Device, Via Natural or Artificial Opening (ICD-10-PCS; principal; 2024-03-15)
DX: K56.600 Partial intestinal obstruction, unspecified as to cause (principal); N17.0 Acute kidney failure with tubular necrosis; K52.9 Noninfective gastroenteritis and colitis, unspecified; K44.9 Diaphragmatic hernia without obstruction or gangrene; E86.0 Dehydration; N20.0 Calculus of kidney; K76.0 Fatty (change of) liver, not elsewhere classified; I10 Essential (primary) hypertension; E78.5 Hyperlipidemia, unspecified; J44.9 Chronic obstructive pulmonary disease, unspecified; E11.9 Type 2 diabetes mellitus without complications; E87.6 Hypokalemia; I27.20 Pulmonary hypertension, unspecified; K57.30 Diverticulosis of large intestine without perforation or abscess without bleeding; E66.9 Obesity, unspecified; G47.00 Insomnia, unspecified; Z88.8 Allergy status to other drugs, medicaments and biological substances; Z79.899 Other long term (current) drug therapy; Z87.442 Personal history of urinary calculi; Z68.32 Body mass index [BMI] 32.0-32.9, adult; Z90.49 Acquired absence of other specified parts of digestive tract
CPT/HCPCS: 36415; 74018; 74176; 74250; 76705; 80048; 80053; 81001; 82570; 82962; 83036; 83690; 84300; 85007; 85025; 85027; 85048; 87045; 87427; 87493; 94640; G0378; J1815; J1956; J2001; J2405; J2470; J3490

== ENCOUNTER 2025-01-18 19:08 | Emergency (ER) | payer OTHER, MEDICAID ==
[~2025-01-18] VITALS: Ht 175.3 cm; Wt 102.1 kg
[~2025-01-18 19:08] MED LIST changes: +CYCL-839 PO; +HYDR-4902 PO; +OMEP1CAP70 PO; +TADA5TAB11 PO
--- NOTE | 2025-01-18 19:27 | ED.PDOC ---
GI ASSESSMENT HPI Comments 69 year old male presents to the ED via EMS with a chief complaint of abdominal pain onset 3 days. Patient began experiencing diffused abdominal pain 3 days ago as well as nausea, vomiting, diarrhea. Patient noticed this morning after trying to eat a banana he is also experiencing dysphagia. PMHx COPD, DM, HTN, HLD, gal lstones, kidney stones. Denies fevers, chest pain, shortness of breath, dizziness, blurry vision, dysuria, hematuria, hyperemesis. No other symptoms or modifying factors present at this time. Chief Complaint: Abdominal Pain Time Seen by MD: 19:18 Primary Care Provider: ALEKSANDR Reviewed Notes: Medications, Allergies Allergies: Coded Allergies: Lactose (Verified Allergy, Unknown, 02/04/23) Home Meds Reported Medications Omeprazole (Omeprazole Dr) 20 Mg Cap, 1 CAP PO DAILY 03/13/24 Hydrocodone-Acetaminophen (Hydrocodone Bitartrate/AC 5-325 mg) 1 Tab Tab, 1 TAB PO, TAB 03/13/24 Tadalafil (Cialis) 5 Mg Tab, 1 TAB PO DAILY, #30 TAB 5 Refills 03/13/24 Cyclobenzaprine Hcl (Cyclobenzaprine Hcl) 10 Mg Tab, 10 MG PO Q8HP PRN for PAIN SCALE 7 THRU 10 for 30 Days, MG 03/13/24 Sertraline Hcl (Sertraline Hcl) Unknown Strength Tab, PO, TAB 10/08/23 Tamsulosin Hcl (Flomax) 0.4 Mg Cap, 0.4 MG PO DAILY, CAP 10/08/23 Metformin Hydrochloride (Metformin Hcl) Unknown Strength Tab, PO, TAB 10/08/23 Hydralazine HCl (Hydralazine HCl) 25 Mg Tab, 1 TAB PO BID 04/02/22 Ketoconazole (Ketoconazole) 2 % Sha, 1 APPLIC TOP 2XW 04/02/22 Pravastatin Sodium (PRAVACHOL TABLET) 20 Mg Tb, 1 TAB PO QHSP 04/02/22 Tramadol Hcl (Tramadol Hcl) 50 Mg Tab, 1 TAB PO Q4HP 04/02/22 Linaclotide Base (LINZESS) 145 Mcg Cap, 1 CAP PO DAILY PRN for FOR CONSTIPATION 04/02/22 Clonidine Hydrochloride (Clonidine Hcl) 0.2 Mg Tab, 1 TAB PO BID 04/02/22 Metoprolol Tartrate (Lopressor) 25 Mg Tb, 1 TAB PO BID 04/02/22 Information Source: Patient, Emergency Med Personnel Mode of Arrival: EMS Timing: Days Duration: Since onset Prehospital treatment: None Quality: Sharp Severity: Moderate Recent: None Recent Hx of: None Pain Location: Diffuse, RLQ Modifying Factors: Nothing Associated sign and symptoms: Nausea, Vomiting, Diarrhea, Abdominal Pain Past Medical History PAST MEDICAL HISTORY: COPD, DM, Gallstones, High Lipids, HTN, Kidney Stones Surgical History: Appendectomy, Hernia Repair Family History Family History: Family hx of Cancer Social History Smoker: Quit Greater Than 1 Year Alcohol: Denies ETOH Use Drugs: Denies Drug Use Lives In: Home Constitutional: denies: chills, diaphoresis, fatigue, fever, malaise, sweats, weakness, others EENTM: denies: blurred vision, double vision, ear bleeding, ear discharge, ear drainage, ear pain, ear ringing, eye pain, eye redness, hearing loss, mouth pain, mouth swelling, nasal discharge, nose bleeding, nose congestion, nose pa in, photophobia, tearing, throat pain, throat swelling, voice changes, others Respiratory: denies: cough, hemoptysis, orthopnea, SOB at rest, shortness of breath, SOB with excertion, stridor, wheezing, others Cardiovascular: denies: chest pain, dizzy spells, diaphoresis, Dyspnea on exertion, edema, irregular heart beat, left arm pain, lightheadedness, palpitations, PND, syncope, others Gastrointestinal: reports: abdominal pain, diarrhea, dysphagia, nausea, poor appetite, vomiting; denies: abdomen distended, blood streaked bowels, constipated, difficulty swallowing, hematemesis, melena, poor fluid intake, rectal bleeding, rectal pain, others Genitourinary: denies: burning, dysuria, flank pain, frequency, hematuria, incontinence, penile discharge, penile sore, pain, testicle pain, testicle swelling, urgency, others Neurological: denies: dizziness, fainting, headache, left sided numbness, left sided weakness, numbness, paresthesia, pre-existing deficit, right sided numbness, right sided weakness, seizure, speech problems, tingling, tremors, weakness, others Musculoskeletal: denies: back pain, gout, joint pain, joint swelling, muscle pa in, muscle stiffness, neck pain, others Integumetry: denies: bruises, change in color, change in hair/nails, dryness, laceration, lesions, lumps, rash, wounds, others Allergic/Immunocompromised: denies: Difficulty Healing, Frequent Infections, Hives, Itching, others Hematologic/Lymphatic: denies: anemia, blood clots, easy bleeding, easy bruising, swollen glands, others Endocrine: denies: excessive hunger, excessive sweating, excessive thirst, excessive urination, flushing, intolerance to cold, intolerance to heat, unexplained weight gain, unexplained weight loss, others Psychiatric: denies: anxiety, bipolar disorder, depression, hopeless, panic disorder, schizophrenia, sleepless, suicidal, others All Other Systems: Reviewed and Negative Physical Exam General Appearance: No Apparent Distress, Normal HEENT: Normal ENT Inspection, Pharynx Normal, TMs Normal Neck: Full Range of Motion, Non-Tender, Normal, Normal Inspection Respiratory: Chest Non-Tender, Lungs Clear, No Accessory Muscle Use, No Respiratory Distress, Normal Breath Sounds Cardiovascular: No Edema, No JVD, No Murmur, No Gallop, Normal Peripheral Pulses, Regular Rate/Rhythm Breast Exam: Deferred Gastrointestinal: No Organomegaly, Non Tender, No Pulsatile Mass, Normal Bowel Sounds, Soft Genitalia: Deferred Pelvic: Deferred Rectal: Deferred Extremities: No calf tenderness, Normal capillary refill, Normal inspection, Normal range of motion, Non-tender, No pedal edema Musculoskeletal : Apperance: Normal Neurologic: Alert, blueberry grower II-XII nml as Tested, No Motor Deficits, Normal Affect, Normal Mood, No Sensory Deficits Cerebellar Function: Normal Reflexes: Normal Skin: Dry, Normal Color, Warm Lymphatic: No Adenopathy Was a procedure done? Was a procedure done?: No GI differential Dx Differential Diagnosis: Appendicitis, Bowel Obstruction, Constipation, Divertic ular disease, Gastritis/PUD, Gastroenteritis, GI hemorrhage, Hernia, Inflammatory BD, Ischemic Bowel, Pancreatitis, Electrolyte Imbalance, Hypovolemia, Other X-Ray, Labs, Meds, VS Vital Signs Date Time Temp Pulse Resp B/P (MAP) Pulse Ox O2 Delivery O2 Flow Rate FiO2 01/18/25 22:33 130 18 166/111 01/18/25 22:01 163/109 01/18/25 20:20 114 18 129/98 01/18/25 19:27 107 01/18/25 19:16 99.1 110 20 170/110 (130) 98 99.1 Lab Test 01/18/25 19:25 Range/Units White Blood Count 5.3 4.4-10.8 10^3/uL Red Blood Count 6.28 H 4.5-5.90 10^6/uL Hemoglobin 19.1 H 13.5-17.5 g/dL Hematocrit 55.0 H 41.0-53.0 % Mean Corpuscular Volume 87.6 80.0-100.0 fL Mean Corpuscular Hemoglobin 30.4 28.0-32.0 pg Mean Corpuscular Hemoglobin Concent 34.6 32.0-36.0 g/dL Red Cell Distribution Width 13.0 11.8-14.3 % Platelet Count 276 140-450 10^3/uL Mean Platelet Volume 6.5 L 6.9-10.8 fL Neutrophils (%) (Auto) 70.9 37.0-80.0 % Lymphocytes (%) (Auto) 14.2 10.0-50.0 % Monocytes (%) (Auto) 14.4 H 0.0-12.0 % Eosinophils (%) (Auto) 0.3 0.0-7.0 % Basophils (%) (Auto) 0.2 0.0-2.0 % Neutrophils # (Auto) 3.7 1.6-8.6 10 ^3/uL Lymphocytes # (Auto) 0.7 0.4-5.4 10 ^3/uL Monocytes # (Auto) 0.8 0-1.3 10 ^3/uL Eosinophils # (Auto) 0 0-0.8 10 ^3/uL Basophils # (Auto) 0 0-0.2 10 ^3/uL Nucleated Red Blood Cells 0.0 % Sodium Level 134 L 136-145 mmol/L Potassium Level 4.8 3.5-5.1 mmol/L Chloride Level 102 98-107 mmol/L Carbon Dioxide Level 21 20-31 mmol/L Anion Gap 11 5-15 Blood Urea Nitrogen 19 9-23 mg/dL Creatinine 1.17 0.700-1.30 mg/dL Glomerular Filtration Rate Calc 68 >90 mL/min BUN/Creatinine Ratio 16.2 10.0-20.0 Serum Glucose 204 H 74-106 mg/dL Calcium Level 9.7 8.7-10.4 mg/dL Total Bilirubin 0.7 0.2-1.0 mg/dL Aspartate Amino Transferase (AST) 13 13-40 U/L Alanine Aminotransferase (ALT) 17 7-40 U/L Alkaline Phosphatase 89 46-116 U/L Total Protein 7.0 5.7-8.2 g/dL Albumin 4.6 3.2-4.8 g/dL Lipase 25 12-53 U/L Current Medications Medications (Trade) Dose Ordered Sig/Denae Route Start Time Stop Time Status Last Admin Ondansetron HCl (Zofran) 4 mg ONCE ONCE IV 01/18/25 19:30 01/18/25 19:31 DC 01/18/25 20:21 Sodium Chloride 1,000 ml @ 1,000 mls/hr Q1H ONCE IVB 01/18/25 19:30 01/18/25 20:29 DC 01/18/25 20:03 Morphine Sulfate 4 mg ONCE ONCE IV 01/18/25 19:30 01/18/25 19:31 DC 01/18/25 20:20 Hydralazine HCl (Apresoline Injection) 10 mg ONCE ONCE IV 01/18/25 22:00 01/18/25 22:01 DC 01/18/25 22:01 Morphine Sulfate 4 mg ONCE ONCE IV 01/18/25 22:30 01/18/25 22:31 DC 01/18/25 22:33 Ondansetron HCl (Zofran) 4 mg ONCE ONCE IV 01/18/25 22:30 01/18/25 22:31 DC 01/18/25 22:31 [place] [id number] Ph: [phone] DIAGNOSTIC IMAGING Diagnostic Imaging Report : [id number] Signed PATIENT: YULI MCCABECCT: [id number] UNIT: [id number] : 1955 LOC: ER ROOM / BED: / AGE / SEX: 69 / M ADM STATUS: REG ER SERVICE 23 ORDERING PHYSICIAN: BYRON HOLDER MD PROCEDURE(s): ABPLIV - CT AB PEL WITH IV CON ONLY REASON: abd pain, vomiting ORDER NUMBER(s): [id number], ACCESSION NUMBER(s): [id number] Procedure: CT CT AB PEL WITH IV CON ONLY 01/18/2025 08:33 PM Indication: abd pain, vomiting Comparison Study: None Technique: Axial images were obtained and reformatted in coronal and sagittal planes. All CT scans at this medical facility are performed using dose modulation techniques as appropriate to a performed exam including the following: Automated exposure control was utilized; adjustment of the MA and/or KV according to patient size; and use of iterative reconstruction technique. CT Dose: CTDI volume is 22 mGy. Dose-length product is 14 40 mGy*cm FINDINGS: Lower Chest: Unremarkable. Hepatobiliary: Unremarkable. Spleen: Unremarkable. Pancreas: Unremarkable. Adrenal Glands: Unremarkable. tract: The kidneys are normal in size bilaterally without hydronephrosis or nephrolithiasis. The urinary bladder is unremarkable. GI tract: Moderate-sized sliding hiatal hernia . Surgical clips are noted distal esophageal hiatus. Dilated small bowel loops are seen throughout the abdomen measuring up to 4.5 cm with the transition point in mid abdomen at the level of the umbilicus where there is swirling of mesenteric vessels suggesting mid gut volvulus. Small amount of free fluid is seen in the right lower quadrant. Several surgical clips are seen in the right lower quadrant adjacent to internal ring of the right inguinal canal. The large bowel is unremarkable. The appendix is not identified. Lymphatics: No mesenteric, retroperitoneal or periportal lymphadenopathy. Vasculature: The abdominal aorta is normal in caliber. Pelvic Organs: Unremarkable Bones/soft tissues: No acute abnormality. Other: None. IMPRESSION: 1. Small-bowel obstruction with a transition point in the ileum in right paramedian mid abdomen at the level umbilicus where there is swirling of mesenteric vessels suggesting midgut volvulus. Recommend surgical consultation. No evidence of perforation at this time. No pneumoperitoneum small amount of fluid noted in the right lower quadrant. No significant bowel wall edema. ATED BY: CAMELIA LYMAN MD DICTATED DATE/TIME: 01/18/252122 SIGNED BY: CAMELIA LYMAN MD SIGNED DATE/TIME: 01/18/252122 CC: Time of 1ST Reevaluation: 19:48 Reevaluation 1ST: Unchanged Patient Education/Counseling: Diagnosis, Treatment, Prognosis Family Education/Counseling: No Family Present Additional Information The following tests were ordered, and results were reviewed by me: CBC, CMP, LIPASE, UA, CT AB PEL WITH IV CON Additional Information was gathered from interviewing the following independent historians: EMS I reviewed and agreed with the following test results read by other providers: CT AB PEL WITH IV CON I discussed treatment and results with medical personnel and: patient Comprehensive systems review obtained and negative except for what is stated in the HPI. Departure 1 Departure Time of Disposition: 22:40 Impression: Primary Impression: Small bowel obstruction Additional Impressions: Intractable vomiting Volvulus Disposition: ADMITTED INPATIENT Condition: Guarded Discharged With: Self Comments Small Bowel Obstruction with Intractable Vomiting Chief Complaint: Abdominal pain with nausea and vomiting History of Present Illness: 69-year-old male presents with a 3-day history of diffuse bone pain accompanied by abdominal distension, nausea, and vomiting. Patient also reports occasional loose stools. Patient has a significant history of previous hiatal hernia surgeries performed at [facility], which may be contributory to his current presentation. Review of Systems: Constitutional: Positive for generalized bone pain Gastrointestinal: Positive for abdominal distension, nausea, vomiting, and loose stools All other systems reviewed and negative Imaging and Other Relevant Results: CT Abdomen/Pelvis: - Evidence of small bowel obstruction - Possible volvulus in mid-abdomen Medical Decision Making: Summary Statement: 69-year-old male with history of hiatal hernia repairs presenting with symptoms and imaging consistent with small bowel obstruction and possible mid-abdominal volvulus. Problem List: 1. Small bowel obstruction, 2. Possible volvulus, 3. Intractable vomiting Differential Diagnosis: Small bowel obstruction, volvulus, adhesions from previous surgery, incarcerated hernia, gastroenteritis ED Course: Case discussed with General Surgery (Dr. Ruiz). Attempted to coordinate transfer to [facility] where patient had previous surgeries. Plan for admission under General Surgery service with NG tube placement. Assessment and Plan: 1. Small Bowel Obstruction with possible volvulus: - Admission to General Surgery service - NG tube placement ordered - NPO status - IV fluid hydration - Serial abdominal exams 2. Intractable Vomiting: - Antiemetic medication as needed - Strict I/O monitoring 3. Disposition: - Admit to General Surgery service - Continue workup and management Billing Information: ICD-10: K56.609 - Small intestinal obstruction, unspecified ICD-10: K56.2 - Volvulus ICD-10: R11.10 - Vomiting, unspecified Critical Care Note Critical Care Time?: Yes (35 min-critical care time only) Critical care comment: Total critical care time: Approximately 36 minutes Due to a high probability of clinically significant, life threatening deterioration, the patient required my highest level of preparedness to intervene emergently and I personally spent this critical care time directly and personally managing the patient. This critical care time included obtaining a history; examining the patient; pulse oximetry; ordering and review of studies; arranging urgent treatment with development of a management plan; evaluation of patient's response to treatment; frequent reassessment; and, discussions with other providers. This critical care time was performed to assess and manage the high probability of imminent, life-threatening deterioration that could result in multi-organ failure. It was exclusive of separately billable procedures and treating other patients. Stability Stability form required: No Heart Score Heart Score: Heart Score Response (Comments) Value History N/A 0 EKG N/A 0 Age N/A 0 Risk Factors N/A 0 Troponin N/A 0 Total 0 I personally scribed for BYRON HOLDER MD ([email or web address]) on 01/18/25 at 19:27. Electronically submitted by Victoria Mendoza ([email or web address]). I personally scribed for BYRON HOLDER MD ([email or web address]) on 01/18/25 at 19:28. Electronically submitted by Victoria Mendoza ([email or web address]). I personally scribed for BYRON HOLDER MD ([email or web address]) on 01/18/25 at 22:04. Electronically submitted by Victoria Mendoza ([email or web address]). BYRON HOLDER MD January 18, 2025 19:27
[2025-01-18 19:33] LABS: Basophils # (auto) 0 10 ^3/uL (0-0.2); Basophils % (auto) 0.2 % (0.0-2.0); Eosinophils # (auto) 0 10 ^3/uL (0-0.8); Eosinophils % (auto) 0.3 % (0.0-7.0); Monocytes # (auto) 0.8 10 ^3/uL (0-1.3); Neutrophils # (auto) 3.7 10 ^3/uL (1.6-8.6); White Blood Cell 5.3 10^3/uL (4.4-10.8)
[2025-01-18 19:35] LABS: Hemoglobin 19.1 g/dL (13.5-17.5); Lymphocytes # (auto) 0.7 10 ^3/uL (0.4-5.4); Lymphocytes % (auto) 14.2 % (10.0-50.0); Mean Corpuscular Hemoglobin 30.4 pg (28.0-32.0); Mean Corpuscular Hgb Conc. 34.6 g/dL (32.0-36.0); Mean Corpuscular Volume 87.6 fL (80.0-100.0); Monocytes % (auto) 14.4 % (0.0-12.0); Neutrophils % (auto) 70.9 % (37.0-80.0); Platelet Count (auto) 276 10^3/uL (140-450); Red Blood Cells 6.28 10^6/uL (4.5-5.90)
[2025-01-18 20:00] VITALS: PULSE 114; RESP 17; O2SAT 92
[2025-01-18 20:00] LABS: Alanine Aminotransferase 17 U/L (7-40); Alkaline Phosphatase 89 U/L (46-116); Anion Gap 11 (5-15); Aspartate Aminotransferase 13 U/L (13-40); BUN/Creatinine Ratio 16.2 (10.0-20.0); Blood Urea Nitrogen 19 mg/dL (9-23); Calcium 9.7 mg/dL (8.7-10.4); Carbon Dioxide 21 mmol/L (20-31); Chloride 102 mmol/L (98-107); Lipase 25 U/L (12-53); Potassium 4.8 mmol/L (3.5-5.1)
[2025-01-18 20:01] LABS: Albumin 4.6 g/dL (3.2-4.8)
[2025-01-18 20:02] LABS: Bilirubin, Total 0.7 mg/dL (0.2-1.0); Glucose 204 mg/dL (74-106); Sodium 134 mmol/L (136-145)
[2025-01-18] MEDS: SODIUM CHLORIDE 0.9% 1,000 ML IVB ONE (20:03)
[2025-01-18] MEDS: MORPHINE SULFATE 4 MG/ML SYR/VIAL IV ONE ×2 (20:20→22:33)
[2025-01-18] MEDS: ONDANSETRON HCL 4 MG/2 ML VIAL IV ONE ×2 (20:21→22:31)
[2025-01-18] MEDS: IOHEXOL 300 MG/ML 100ML BOTTLE IJ ONE (21:16)
--- NOTE | 2025-01-18 21:25 | DVH ---
Procedure: CT CT AB PEL WITH IV CON ONLY 01/18/2025 08:33 PM Indication: abd pain, vomiting Comparison Study: None Technique: Axial images were obtained and reformatted in coronal and sagittal planes. All CT scans at this medical facility are performed using dose modulation techniques as appropriate to a performed e xam including the following: Automated exposure control was utilized; adjustment of the MA and/or KV according to patient size; and use of iterative reconstruction technique. CT Dose: CTDI volume is 22 mGy. Dose-length product is 14 40 mGy*cm FINDINGS: Lower Chest: Unremarkable. Hepatobiliary: Unremarkable. Spleen: Unremarkable. Pancreas: Unremarkable. Adrenal Glands: Unremarkable. tract: The kidneys are normal in size bilaterally without hydronephrosis or nephrolithiasis. The u rinary bladder is unremarkable. GI tract: Moderate-sized sliding hiatal hernia . Surgical clips are noted distal esophageal hiatus. Dilated small bowel loops are seen throughout the abdomen measuring up to 4.5 cm with the transition point in mid abdomen at the level of the umbilicus where there is swirling of mesenteric vessels sugg esting mid gut volvulus. Small amount of free fluid is seen in the right lower quadrant. Several surg ical clips are seen in the right lower quadrant adjacent to internal ring of the right inguinal canal . The large bowel is unremarkable. The appendix is not identified. Lymphatics: No mesenteric, retroperitoneal or periportal lymphadenopathy. Vasculature: The abdominal aorta is normal in caliber. Pelvic Organs: Unremarkable Bones/soft tissues: No acute abnormality. Other: None. IMPRESSION: 1. Small-bowel obstruction with a transition point in the ileum in right paramedian mid abdomen at th e level umbilicus where there is swirling of mesenteric vessels suggesting midgut volvulus. Recommend surgical consultation. No evidence of perforation at this time. No pneumoperitoneum small amount of fluid noted in the right lower quadrant. No significant bowel wall edema.
[2025-01-18] MEDS ORDERED: cloNIDine HCL 0.1 MG TAB PO ONE (21:30)
[2025-01-18] MEDS: hydrALAZINE HCL 20 MG/ML VL IV ONE ×2 (22:00→22:01)
[2025-01-19 01:26] LABS: Urine Bacteria None Seen /hpf (None Seen)
[2025-01-19 01:43] LABS: Urine Blood 1+ /uL (Negative); Urine Clarity Clear (Clear); Urine Color Yellow (Yellow); Urine Mucus FEW (None Seen); Urine Protein, UAD TRACE (Negative); Urine Squamous Epithelial Cell None Seen /hpf (<5); Urine Urobilinogen Normal (Negative); Urine WBC 1 /HPF (0-3); Urine pH 5.5 (5.0-9.0)
[2025-01-19 01:46] LABS: Urine Specific Gravity > 1.050 (1.001-1.035)
[2025-01-19 01:53] VITALS: BP 165/124; PULSE 125; RESP 17; TEMP 98.3; O2SAT 94
[2025-01-19] MEDS: HYDROmorphone HCL 2 MG/ML VL/or syr IV ONE (01:53)
[2025-01-19] MEDS: ONDANSETRON HCL 4 MG/2 ML VIAL IV ONE (01:54)
--- NOTE | 2025-01-19 06:42 | ECG ---
[facility] Test Date: 2025-01-18 Test Time: 19:27:32 Pat Name: UTE MCCABE Department: ED Room: Gender: M Research Laboratory Manager: CHAR : 1955 Requested By: BYRON HOLDER Order Number: [id number] Reading MD: Edin Mckeon Measurements Intervals [place] Rate: 107 P: 19 WV: 166 QRS: 165 QRSD: 106 T: -7 QT: 329 QTc: 439 Interpretive Statements Sinus tachycardia Left posterior fascicular block Low voltage, precordial leads Consider anterior infarct Borderline T abnormalities, inferior leads Baseline wander in lead(s) I,III,aVL,aVF,V1,V2,V3,V4,V5 Electronically Signed On 01-19-2025 13:15:22 PDT by Edin Mckeon Please click the below link to view image of tracing.
== END 2025-01-19 02:11 | disposition short-term general hospital (02) ==
LOC: ER 19:08 → EDBD 19:08 → ER 01-19 02:11
DX: K56.609 Unspecified intestinal obstruction, unspecified as to partial versus complete obstruction (principal); R11.2 Nausea with vomiting, unspecified; K56.2 Volvulus; J44.9 Chronic obstructive pulmonary disease, unspecified; E11.9 Type 2 diabetes mellitus without complications; E78.5 Hyperlipidemia, unspecified; I10 Essential (primary) hypertension; Z98.890 Other specified postprocedural states; Z90.49 Acquired absence of other specified parts of digestive tract; Z79.899 Other long term (current) drug therapy
CPT/HCPCS: 36415; 74177; 80053; 81001; 83690; 85025; 93005; 96361; 96374; 96375; 96376; 99285; J0360; J1171; J2270; J2405; J7030; Q9967